=== PATIENT | male | born 1935 | race African-American/Black ===

== ENCOUNTER 2016-09-13 12:32 | Observation (INO) | payer MEDICARE, OTHER ==
[~2016-09-13] VITALS: Ht 182.9 cm; Wt 115.4 kg
[~2016-09-13 12:32] MED LIST: GLIP-112 PO; IRBE1TAB7 PO; PIOG30TA41 PO; TAMS0.4C97 PO; VERA240C2 PO; VIT1TABL71 PO
[2016-09-13] MEDS ORDERED: fentaNYL PF VIAL 100 MCG/2 ML VIAL IV PRN (13:30)
--- NOTE | 2016-09-13 13:40 | PHYS DOC ---
Past Medical History Past Medical History: Diabetes-Type II, Hypertension Past Surgical History: No Surgical History Alcohol Use: None Drug Use: None Adult General Chief Complaint Chief Complaint: LOWER EXTREMITY SWELLING HPI HPI Patient is a 81 year old -[place] male who presents with left lower extremities wounds and swelling. He states that these wounds occurred about one to 2 weeks ago is after he got discharged from here and was caused by Elbert. He states wound care nurse came out starting Saturday and has been treating it but he's not had any antibiotics. He states that its getting swollen. He denies any fevers chills nausea vomiting or wound discharge. He states wound care nurse wanted us to evaluated today. He is allergic to tetanus shots and is refusing a tetanus shot. He is of a history of diabetes. He presents to the ER with his nephew Review of Systems Review of Systems Constitutional: Denies fever or chills [] Eyes: Denies change in visual acuity, redness, or eye pain [] HENT: Denies nasal congestion or sore throat [] Respiratory: Denies cough or shortness of breath [] Cardiovascular: No additional information not addressed in HPI [] GI: Denies abdominal pain, nausea, vomiting, bloody stools or diarrhea [] : Denies dysuria or hematuria [] Musculoskeletal: Denies back pain or joint pain [] Integument: Denies rash or positive for skin lesion left lower calf Neurologic: Denies headache, focal weakness or sensory changes [] Endocrine: Denies polyuria or polydipsia [] Current Medications Current Medications Current Medications Medications (Trade) Dose Ordered Sig/Amanda Start Time Stop Time Status Last Admin Dose Admin Fentanyl Citrate (Fentanyl 2ml Vial) 25 mcg PRN Q15MIN PRN 09/13/16 13:30 09/14/16 13:29 UNV Allergies Allergies Allergies Coded Allergies Type Severity Reaction Last Updated Verified No Known Drug Allergies 08/14/16 No Physical Exam Physical Exam Constitutional: Well developed, well nourished, no acute distress, non-toxic appearance. [] HENT: Normocephalic, atraumatic, bilateral external ears normal, oropharynx moist, no oral exudates, nose normal. [] Eyes: PERRLA, EOMI, conjunctiva normal, no discharge. [] Neck: Normal range of motion, no tenderness, supple, no stridor. [] Cardiovascular:Heart rate regular rhythm, no murmur [] Lungs & Thorax: Bilateral breath sounds clear to auscultation [] Abdomen: Bowel sounds normal, soft, no tenderness, no masses, no pulsatile masses. [] Skin: Warm, dry, no erythema, no rash. [] Back: No tenderness, no CVA tenderness. [] Extremities: No tenderness, no cyanosis, no clubbing, ROM intact, 2+ edema of the left lower calf and foot with 7 x 2 cm healing wound across the anterior surface of the tib-fib area, 5 mm x 5 mm scab on the dorsum of the left foot with surrounding edema, no erythema appreciated Neurologic: Alert and oriented X 3, normal motor function, normal sensory function, no focal deficits noted. [] Psychologic: Affect normal, judgement normal, mood normal. [] Current Patient Data Vital Signs Vital Signs Date Time Temp Pulse Resp B/P (MAP) Pulse Ox O2 Delivery O2 Flow Rate FiO2 09/13/16 14:43 72 13 215/89 (131) 94 Room Air 09/13/16 13:10 97.9 97.9 Lab Values Laboratory Tests Test 09/13/16 14:15 White Blood Count 5.0 x10^3/uL (4.0-11.0) Red Blood Count 2.82 x10^6/uL (4.30-5.70) L Hemoglobin 7.3 g/dL (13.0-17.5) L Hematocrit 23.2 % (39.0-53.0) L Mean Corpuscular Volume 82 fL (79-100) Mean Corpuscular Hemoglobin 26 pg (25-35) Mean Corpuscular Hemoglobin Concent 31 g/dL (31-37) Red Cell Distribution Width 26.5 % (11.5-14.5) H Platelet Count 171 x10^3/uL (140-400) Neutrophils (%) (Auto) 73 % (31-73) Lymphocytes (%) (Auto) 8 % (24-48) L Monocytes (%) (Auto) 12 % (0-9) H Eosinophils (%) (Auto) 6 % (0-3) H Basophils (%) (Auto) 1 % (0-3) Neutrophils # (Auto) 3.7 x10^3uL (1.8-7.7) Lymphocytes # (Auto) 0.4 x10^3/uL (1.0-4.8) L Monocytes # (Auto) 0.6 x10^3/uL (0.0-1.1) Eosinophils # (Auto) 0.3 x10^3/uL (0.0-0.7) Basophils # (Auto) 0.0 x10^3/uL (0.0-0.2) Platelet Estimate Adequate (ADEQUATE) Polychromasia Slight Anisocytosis Slight Ovalocytes Occ Erythrocyte Sedimentation Rate 49 (0-15) H Sodium Level 141 mmol/L (136-145) Potassium Level 5.5 mmol/L (3.5-5.1) H Chloride Level 109 mmol/L (98-107) H Carbon Dioxide Level 22 mmol/L (21-32) Anion Gap 10 (6-14) Blood Urea Nitrogen 57 mg/dL (8-26) H Creatinine 3.0 mg/dL (0.7-1.3) H Estimated GFR (Cockcroft-Gault) 24.5 BUN/Creatinine Ratio 19 (6-20) Glucose Level 148 mg/dL (70-99) H Calcium Level 7.8 mg/dL (8.5-10.1) L Total Bilirubin 0.2 mg/dL (0.2-1.0) Aspartate Amino Transferase (AST) 15 U/L (15-37) Alanine Aminotransferase (ALT) 15 U/L (16-63) L Alkaline Phosphatase 96 U/L (46-116) C-Reactive Protein, Quantitative 4.1 mg/L (0-3.3) H Total Protein 6.7 g/dL (6.4-8.2) Albumin 2.9 g/dL (3.4-5.0) L Albumin/Globulin Ratio 0.8 (1.0-1.7) L Laboratory Tests 09/13/16 14:15 Laboratory Tests 09/13/16 14:15 EKG EKG EKG shows sinus rhythm with rate of [address] elevations or T-wave inversions, and axis deviation, QTC 419 ms, as interpreted by me. Radiology/Procedures Radiology/Procedures [facility] [address] [place], [place] [id number] IMAGING REPORT Signed PATIENT: LUKE TALLEY ACCOUNT: [id number] : 1935 LOCATION: ER AGE: 81 SEX: M EXAM [id number] STATUS: REG ER ORD. PHYSICIAN: GALLO STAFFORD MD REASON: wound PROCEDURE: FOOT LEFT 3V; TIBIA FIBULA LEFT EXAM: 1. [Left tibia/fibula 2 views. 2. Left foot 3 views. HISTORY: Open ulcers. COMPARISON: None. FINDINGS: There is a nondisplaced oblique fracture of the left distal fibular metaphysis. No tibial fracture is appreciated. 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 There is varus angulation and lateral subluxation of the tibia. Soft tissue swelling is noted throughout the leg. Atherosclerotic calcifications are noted. Osteopenia is at least moderate. There appears to be a bone island within the 2nd metatarsal diaphysis. No fractures are appreciated in the left foot. Tarsometatarsal osteoarthritis is mild for patient age. There is diffuse soft tissue swelling. No open ulcer or clear cortical erosion is identified by radiographs. IMPRESSION: 1. Nondisplaced oblique fracture of the left distal fibular metaphysis. 2. Diffuse soft tissue swelling. No clear acute osteomyelitis by radiographs. 3. 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 DICTATED and SIGNED BY: ALEXYS BAEZA MD DATE: 09/13/161444 CC: GALLO STAFFORD MD; SURY YEPEZ [facility] [address] [place], [place] [id number] IMAGING REPORT Signed PATIENT: LUKE TALLEY ACCOUNT: [id number] : 1935 LOCATION: ER AGE: 81 SEX: M EXAM STATUS: REG ER ORD. PHYSICIAN: GALLO STAFFORD MD REASON: swelling PROCEDURE: VENOUS LOWER EXTREMITY LEFT EXAM: Left lower extremity venous Doppler. HISTORY: Left lower extremity pain/swelling. COMPARISON: None. FINDINGS: Grayscale and Doppler analysis of the left lower extremity deep venous system was performed with graded compression and augmentation. The common femoral, greater saphenous, superficial femoral, popliteal and calf veins were assessed. There is no evidence of deep venous thrombosis. IMPRESSION: 1. No evidence of deep venous thrombosis. DICTATED and SIGNED BY: ALEXYS BAEZA MD DATE: 09/13/16 1416 CC: GALLO STAFFORD MD; SURY YEPEZ ~ Impressions: Cellulitis left lower extremities Hyperkalemia Accelerated hypertension Course & Med Decision Making Course & Med Decision Making Pertinent Labs and Imaging studies reviewed. (See chart for details) EKG doesn't show any concerning abnormalities. His potassium is 5.5 on labs. His creatinine is 3 which is his baseline. His blood pressures systolics been greater than 200 since he's been here. We'll give IV hydralazine and admit to the hospitalist with IV hydration and start antibiotics for his cellulitis of his left lower leg. Ultrasound left lower leg and plain films do not show any DVT or osteomyelitis. Patient's agreeable to plan, interim orders have been written. Dragon Disclaimer Dragon Disclaimer This electronic medical record was generated, in whole or in part, using a voice recognition dictation system. Departure Departure Impression: Primary Impression: Hyperkalemia Disposition: ADMITTED INPATIENT Admitting Physician: Marlee Trimble Condition: STABLE Referrals: SURY YEPEZ (PCP) GALLO STAFFORD MD Sep 13, 2016 13:40
--- NOTE | 2016-09-13 14:21 | RAD ---
EXAM: Left lower extremity venous Doppler. HISTORY: Left lower extremity pain/swelling. COMPARISON: None. FINDINGS: Grayscale and Doppler analysis of the left lower extremity deep venous system was performed with graded compression and augmentation. The common femoral, greater saphenous, superficial femoral, popliteal and calf veins were assessed. There is no evidence of deep venous thrombosis. IMPRESSION: 1. No evidence of deep venous thrombosis.
[2016-09-13 14:24] LABS: BASO % 1 % (0-3); EOS % 6 % (0-3); HEMATOCRIT 23.2 % (39.0-53.0); HEMOGLOBIN 7.3 g/dL (13.0-17.5); LYMPH # 0.4 x10^3/uL (1.0-4.8); LYMPH % 8 % (24-48); MEAN CORPUSCULAR HEMOGLOBIN 26 pg (25-35); MEAN CORPUSCULAR HGB CONC 31 g/dL (31-37); MEAN CORPUSCULAR VOLUME 82 fL (79-100); MONO % 12 % (0-9); NEUT % 73 % (31-73); PLATELET COUNT 171 x10^3/uL (140-400); RED BLOOD COUNT 2.82 x10^6/uL (4.30-5.70); RED CELL DISTRIBUTION WIDTH 26.5 % (11.5-14.5)
--- NOTE | 2016-09-13 14:51 | RAD ---
EXAM: 1. [Left tibia/fibula 2 views. 2. Left foot 3 views. HISTORY: Open ulcers. COMPARISON: None. FINDINGS: There is a nondisplaced oblique fracture of the left distal fibular metaphysis. No tibial fracture is appreciated. 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 There is varus angulation and lateral subluxation of the tibia. Soft tissue swelling is noted throughout the leg. Atherosclerotic calcifications are noted. Osteopenia is at least moderate. There appears to be a bone island within the 2nd metatarsal diaphysis. No fractures are appreciated in the left foot. Tarsometatarsal osteoarthritis is mild for patient age. There is diffuse soft tissue swelling. No open ulcer or clear cortical erosion is identified by radiographs. IMPRESSION: 1. Nondisplaced oblique fracture of the left distal fibular metaphysis. 2. Diffuse soft tissue swelling. No clear acute osteomyelitis by radiographs. 3. 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
[2016-09-13 14:57] LABS: ANISOCYTOSIS SLIGHT; OVALOCYTES OCC; PLT ESTIMATE ADEQUATE (ADEQUATE); POLYCHROMASIA SLIGHT
[2016-09-13 15:06] LABS: CALCIUM 7.8 mg/dL (8.5-10.1); GFR 24.5; POTASSIUM 5.5 mmol/L (3.5-5.1)
[2016-09-13 15:13] LABS: ALBUMIN 2.9 g/dL (3.4-5.0); ALBUMIN/GLOBULIN RATIO 0.8 (1.0-1.7); C-REACTIVE PROTEIN 4.1 mg/L (0-3.3); TOTAL BILIRUBIN 0.2 mg/dL (0.2-1.0); TOTAL PROTEIN 6.7 g/dL (6.4-8.2)
--- NOTE | 2016-09-13 16:24 | EKG ---
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
[2016-09-13] MEDS ORDERED: hydrALAZINE 20 MG/ML VIAL. IVP ONE (16:45)
[2016-09-13] MEDS ORDERED: VANCOMYCIN 2 GM in IV NORMAL SALINE 500ML BAG 500 ML IV ONE (16:45)
[2016-09-13] MEDS ORDERED: ONDANSETRON PF 4 MG/2 ML VIAL. IV PRN (16:45)
[2016-09-13] MEDS ORDERED: IV NORMAL SALINE 1000ML BAG 1,000 ML IV ONE ×2 (16:45→17:00)
--- NOTE | 2016-09-13 16:48 | PDOC1 ---
History and Physical Date of Admission Date of Admission DATE: 09/13/16 TIME: 16:47 History of Present Illness History of Present Illness Mr. Zhao, is a 81 year old admit with worsening of left lower extremities wounds and swelling. He has been seen here recently for same, was DC with wound care, and leg wounds had worsened. he previously had more LE edema, but pain is abou the same. Pain 3/10 has been getting home RN and wound care for the past week, foot and delarosa are more swollen, with some exposed areas of erythema. Some appears chronic, but patient is describing a recent worsening of pain and swelling and redness no discharge or bleeding Past Medical History Cardiovascular: HTN Musculoskeletal: low back pain Renal/: Chronic renal insuff Endocrine: Diabetes Family History Family History: Diabetes Social History Smoke: No ALCOHOL: none Drugs: None Current Problem List Problem List Problems Medical Problems: (1) Hyperkalemia Status: Acute Problems: Current Medications Current Medications Current Medications Fentanyl Citrate (Fentanyl 2ml Vial) 25 mcg PRN Q15MIN PRN IV PAIN GREATER THAN 3/10; Start 09/13/16 at 13:30; Stop 09/14/16 at 13:29; Status UNV Ondansetron HCl (Zofran) 4 mg PRN Q8HRS PRN IV NAUSEA/VOMITING; Start 09/13/16 at 16:45; Stop 09/14/16 at 16:44 Vancomycin HCl (Vanco Per Pharmacy) 1 each PRN DAILY PRN MC SEE COMMENTS; Start 09/13/16 at 16:45; Status UNV Sodium Chloride 1,000 ml @ 1,000 mls/hr 1X ONCE IV ; Start 09/13/16 at 16:45; Stop 09/13/16 at 17:44 Hydralazine HCl (Apresoline) 10 mg 1X ONCE IVP ; Start 09/13/16 at 16:45; Stop 09/13/16 at 16:46 Vancomycin HCl 2 gm/Sodium Chloride 500 ml @ 250 mls/hr 1X ONCE IV ; Start at 16:45; Stop 09/13/16 at 18:44 Active Scripts Active Reported Verapamil Er (Verapamil Hcl) 240 Mg Cap24h.pel 1 Cap PO DAILY Kallie-Magui Rx Tablet (Vit B Cmplx 3/Fa/Vit C/Biotin) 1 Each Tablet 1 Each PO DAILY Irbesartan-Hctz 300-12.5 Mg Tb (Irbesartan/Hydrochlorothiazide) 1 Each Tablet 1 Each PO DAILY Glipizide Er (Glipizide) 10 Mg Tab.er.24 1 Tab PO DAILYWSUP Glipizide Er (Glipizide) 10 Mg Tab.er.24 2 Tab PO DAILYWBKFT Flomax (Tamsulosin Hcl) 0.4 Mg Cap.er.24h 2 Cap PO DAILY Actos (Pioglitazone Hcl) 30 Mg Tablet 1 Tab PO DAILY Allergies Allergies: Coded Allergies: No Known Drug Allergies (Unverified , 08/14/16) ROS Review of System 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 , 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 [employer]: No: Chills, Night Sweats, Fatigue, Malaise, Appetite, Other PSYCHOLOGICAL ROS: No: Anxiety, Behavioral Disorder, Concentration difficultie , Decreased libido, Depression, Disorientation, Hallucinations, Hostility, Irritablity, Memory difficulties, Mood Swings, Obsessive thoughts, Physical abuse, Sexual abuse, Sleep disturbances, Suicidal ideation, Other Eyes: No Blurry vision, No Decreased vision, No Double vision, No Dry eyes, No Excessive tearing, No Eye Pain, No Itchy Eyes, No Loss of vision, No Photophobia , No Scotomata, No Uses contacts, No Uses glasses, No Other HEENT: No: Heacaches, Visual Changes, Hearing change, Nasal congestion, Nasal discharge, Oral lesions, Sinus pain, Sore Throat, Epistaxis, Sneezing, Snoring, Tinnitus, Vertigo, Vocal changes, Other Respiratory: No: Cough, Hemoptysis, Orthopnea, Pleuritic Pain, Shortness of breath, SOB with excertion, Sputum Changes, Stridor, Tachypnea, Wheezing, Other Cardiovascular: No Chest Pain, No Palpitations, No Orthopnea, No Paroxysmal Noc. Dyspnea, No Edema, No Lt Headedness, No Other Gastrointestinal: No Nausea, No Vomiting, No Abdominal Pain, No Diarrhea, No Constipation, No Melena, No Hematochezia, No Other Genitourinary: No Dysuria, No Frequency, No Incontinence, No Hematuria, No Retention, No Discharge, No Urgency, No Pain, No Flank Pain, No Other, No , No , No , No , No , No , No Musculoskeletal: Yes Joint Stiffness Neurological: No Behavorial Changes, No Bowel/Bladder ControlChng, No Confusion , No Dizziness, No Gait Disturbance, No Headaches, No Impaired Coord/balance, No Memory Loss, No Numbness/Tingling, No Seizures, No Speech Problems, No Tremors, No Visual Changes, No Weakness, No Other Skin: Yes Dry Skin, Yes Rash, Yes Skin Lesion Changes Physical Exam General: Alert, Oriented X3, Cooperative HEENT: Atraumatic, PERRLA Lungs: Clear to auscultation Heart: S1S2, RRR, no murmurs Extremities: No clubbing, No cyanosis, Other (1+ edema legt) Skin: Other (LE erythema and excoriation) Neuro: Normal speech, Sensation intact Psych/Mental Status: Mood NL Vitals Vitals Vital Signs Date Time Temp Pulse Resp B/P (MAP) Pulse Ox O2 Delivery O2 Flow Rate FiO2 09/13/16 14:43 72 13 215/89 (131) 94 Room Air 09/13/16 13:10 97.9 97.9 Labs Labs Laboratory Tests Test 09/13/16 14:15 White Blood Count 5.0 x10^3/uL (4.0-11.0) Red Blood Count 2.82 x10^6/uL (4.30-5.70) Hemoglobin 7.3 g/dL (13.0-17.5) Hematocrit 23.2 % (39.0-53.0) Mean Corpuscular Volume 82 fL (79-100) Mean Corpuscular Hemoglobin 26 pg (25-35) Mean Corpuscular Hemoglobin Concent 31 g/dL (31-37) Red Cell Distribution Width 26.5 % (11.5-14.5) Platelet Count 171 x10^3/uL (140-400) Neutrophils (%) (Auto) 73 % (31-73) Lymphocytes (%) (Auto) 8 % (24-48) Monocytes (%) (Auto) 12 % (0-9) Eosinophils (%) (Auto) 6 % (0-3) Basophils (%) (Auto) 1 % (0-3) Neutrophils # (Auto) 3.7 x10^3uL (1.8-7.7) Lymphocytes # (Auto) 0.4 x10^3/uL (1.0-4.8) Monocytes # (Auto) 0.6 x10^3/uL (0.0-1.1) Eosinophils # (Auto) 0.3 x10^3/uL (0.0-0.7) Basophils # (Auto) 0.0 x10^3/uL (0.0-0.2) Platelet Estimate Adequate (ADEQUATE) Polychromasia Slight Anisocytosis Slight Ovalocytes Occ Erythrocyte Sedimentation Rate 49 (0-15) Sodium Level 141 mmol/L (136-145) Potassium Level 5.5 mmol/L (3.5-5.1) Chloride Level 109 mmol/L (98-107) Carbon Dioxide Level 22 mmol/L (21-32) Anion Gap 10 (6-14) Blood Urea Nitrogen 57 mg/dL (8-26) Creatinine 3.0 mg/dL (0.7-1.3) Estimated GFR (Cockcroft-Gault) 24.5 BUN/Creatinine Ratio 19 (6-20) Glucose Level 148 mg/dL (70-99) Calcium Level 7.8 mg/dL (8.5-10.1) Total Bilirubin 0.2 mg/dL (0.2-1.0) Aspartate Amino Transf (AST/SGOT) 15 U/L (15-37) Alanine Aminotransferase (ALT/SGPT) 15 U/L (16-63) Alkaline Phosphatase 96 U/L (46-116) C-Reactive Protein, Quantitative 4.1 mg/L (0-3.3) Total Protein 6.7 g/dL (6.4-8.2) Albumin 2.9 g/dL (3.4-5.0) Albumin/Globulin Ratio 0.8 (1.0-1.7) Laboratory Tests Test 09/13/16 14:15 White Blood Count 5.0 x10^3/uL (4.0-11.0) Red Blood Count 2.82 x10^6/uL (4.30-5.70) Hemoglobin 7.3 g/dL (13.0-17.5) Hematocrit 23.2 % (39.0-53.0) Mean Corpuscular Volume 82 fL (79-100) Mean Corpuscular Hemoglobin 26 pg (25-35) Mean Corpuscular Hemoglobin Concent 31 g/dL (31-37) Red Cell Distribution Width 26.5 % (11.5-14.5) Platelet Count 171 x10^3/uL (140-400) Neutrophils (%) (Auto) 73 % (31-73) Lymphocytes (%) (Auto) 8 % (24-48) Monocytes (%) (Auto) 12 % (0-9) Eosinophils (%) (Auto) 6 % (0-3) Basophils (%) (Auto) 1 % (0-3) Neutrophils # (Auto) 3.7 x10^3uL (1.8-7.7) Lymphocytes # (Auto) 0.4 x10^3/uL (1.0-4.8) Monocytes # (Auto) 0.6 x10^3/uL (0.0-1.1) Eosinophils # (Auto) 0.3 x10^3/uL (0.0-0.7) Basophils # (Auto) 0.0 x10^3/uL (0.0-0.2) Platelet Estimate Adequate (ADEQUATE) Polychromasia Slight Anisocytosis Slight Ovalocytes Occ Erythrocyte Sedimentation Rate 49 (0-15) Sodium Level 141 mmol/L (136-145) Potassium Level 5.5 mmol/L (3.5-5.1) Chloride Level 109 mmol/L (98-107) Carbon Dioxide Level 22 mmol/L (21-32) Anion Gap 10 (6-14) Blood Urea Nitrogen 57 mg/dL (8-26) Creatinine 3.0 mg/dL (0.7-1.3) Estimated GFR (Cockcroft-Gault) 24.5 BUN/Creatinine Ratio 19 (6-20) Glucose Level 148 mg/dL (70-99) Calcium Level 7.8 mg/dL (8.5-10.1) Total Bilirubin 0.2 mg/dL (0.2-1.0) Aspartate Amino Transf (AST/SGOT) 15 U/L (15-37) Alanine Aminotransferase (ALT/SGPT) 15 U/L (16-63) Alkaline Phosphatase 96 U/L (46-116) C-Reactive Protein, Quantitative 4.1 mg/L (0-3.3) Total Protein 6.7 g/dL (6.4-8.2) Albumin 2.9 g/dL (3.4-5.0) Albumin/Globulin Ratio 0.8 (1.0-1.7) VTE Prophylaxis Ordered VTE Prophylaxis Devices: Yes VTE Pharmacological Prophylaxi: No Assessment/Plan Assessment/Plan LE cellulitis and swelling, consult ID, 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
[2016-09-13] MEDS: VANCOMYCIN PER PHARMACY MC PRN (17:47)
[2016-09-13 19:00] VITALS: BP 142/68
[2016-09-13 20:35] VITALS: BP 142/68
[2016-09-13] MEDS ORDERED: TAMSULOSIN 0.4 MG CAP.ER.24H. PO SCH (21:00)
[2016-09-13] MEDS ORDERED: DEXTROSE 50% 25 GM / 50ML DISP.SYRIN. IV PRN (21:00)
[2016-09-13 23:00] VITALS: BP 147/68
--- NOTE | 2016-09-13 23:05 | ACF ---
Admission Forms Criteria HYPONATREMIA; HYPERNATREMIA; HYPOKALEMIA; HYPERKALEMIA; HYPOCALCEMIA; HYPERCALCEMIA Clinical Indications for Inpatient Care (Place 'X' for any and all applicable criteria): Ongoing inpatient care may be indicated for ANY ONE of the following [G](1)(2)(3 )(5): [ ]I. Hyponatremia with ANY ONE of the following: [ ]a) Sodium less than 130 mEq/L (mmol/L) (new) (6)(22) [ ]b) Sodium less than 135 mEq/L (mmol/L) with ANY ONE of the following: [ ]i) Severe medical etiology requiring inpatient management (eg, heart failure, hypovolemia) [ ]ii) Altered mental status [ ]iii) Seizures [ ]II. Hypernatremia with ANY ONE of the following: [ ]a) Sodium greater than 155 mEq/L (mmol/L) [ ]b) Sodium greater than 150 mEq/L (mmol/L) with ANY ONE of the following: [ ] i) Altered mental status [ ]ii) Seizures [ ]iii) Severe medical etiology (eg, hypovolemia, diabetes insipidus) [ ]iv) Severe weakness [ ]v) Severe medical etiology (eg, hemolysis, infection, drug overdose) [ ]III. Hypokalemia with ANY ONE of the following: [ ]a) Potassium less than 2.5 mEq/L (mmol/L) despite outpatient and emergency treatment [ ]b) Potassium less than 3.0 mEq/L (mmol/L) with ANY ONE of the following: [ ]i) Weakness [ ]ii) Cardiac abnormality (eg, arrhythmia, conduction disturbance) [ ]iii) Cardiac ischemia [ ]iv) Ileus [ ]v) Ongoing medical cause requiring inpatient management. ( e.g., acute renal wasting, SIADH) [ ]vi) Other severe symptoms [X] IV. Hyperkalemia with ANY ONE of the following: [ ]a) Potassium greater than 6.5 mEq/L (mmol/L) [X]b) Potassium greater than 5 mEq/L (mmol/L) with ANY ONE of the following: [ ]i) Severe ECG findings [H] [X]ii) Acute worsening of renal failure (creatinine greater than 2.5 mg/dL (221 micromoles/L) or significant elevation for age and size) [ ] V. Hypocalcemia with ANY ONE of the following: [ ]a) Calcium less than 7 mg/dL (1.75 mmol/L) despite outpatient and emergency treatment(19) [ ]b) Calcium less than 8 mg/dL (2 mmol/L) with significant symptoms or findings; examples include: [ ]i) Cardiac abnormality (eg, arrhythmia or conduction disturbance) [ ]ii) Altered mental status [ ]iii) Seizures [ ]iv) Breathing difficulty [ ]v) Muscle spasms [ ]. Hypercalcemia with ANY ONE of the following: [ ]a) Calcium greater than 14 mg/dL (3.5 mmol/L) [ ]b) Calcium greater than 12 mg/dL (3 mmol/L) with ANY ONE of the following: [ ]i) Significant dehydration or hypovolemia as indicated by ANY ONE of the following(2): [ ]1. Clinically significant dehydration as indicated by ANY ONE of the following: [ ]A. Acute loss of weight from baseline (5% of body weight in adults, 9% in pediatric patients) [ ]B. Hemodynamic instability [ ]C. Acute renal failure [ ]D. Serum sodium greater than 150 mEq/L (mmol/L) [ ]2) Dehydration that is persistent indicated by ALL of the following: [ ]A. Oral rehydration therapy not tolerated or insufficient to adequately correct dehydration [ ]B. Appropriate intravenous treatment (eg, fluids ) does not readily correct dehydration ie, after 12 to 24 hours of treatment) [ ]ii) Significant symptoms or findings; examples include: [ ]1) Altered mental status [ ]2) Cardiac abnormality (eg, arrhythmia, conduction disturbance) [ ]3) Cardiac abnormality (eg, arrhythmia, conduction disturbance) The original [facility] content created by [facility] [employer] has been revised. The portions of the content which have been revised are identified through the use of italic text or in bold, and [facility] has neither reviewed nor approved the modified material. All other unmodified content is copyright [facility] Please see references footnoted in the original [facility] [employer] edition 2016 Admission Criteria Met?: Yes MORENO LYNN Sep 13, 2016 23:05
[2016-09-14 05:50] LABS: BASO % 1 % (0-3); EOS % 6 % (0-3); HEMATOCRIT 23.6 % (39.0-53.0); HEMOGLOBIN 7.3 g/dL (13.0-17.5); LYMPH # 0.4 x10^3/uL (1.0-4.8); LYMPH % 9 % (24-48); MEAN CORPUSCULAR HEMOGLOBIN 26 pg (25-35); MEAN CORPUSCULAR HGB CONC 31 g/dL (31-37); MEAN CORPUSCULAR VOLUME 83 fL (79-100); MONO % 12 % (0-9); NEUT % 72 % (31-73); PLATELET COUNT 166 x10^3/uL (140-400); RED BLOOD COUNT 2.83 x10^6/uL (4.30-5.70); RED CELL DISTRIBUTION WIDTH 26.8 % (11.5-14.5); WHITE BLOOD COUNT 4.6 x10^3/uL (4.0-11.0)
[2016-09-14 06:07] LABS: CALCIUM 8.2 mg/dL (8.5-10.1); CREATININE 2.6 mg/dL (0.7-1.3); GFR 28.9
[2016-09-14 06:42] LABS: % SAT IRON 16 % (15-34); IRON,SERUM 38 ug/dL (65-175)
[2016-09-14 06:45] LABS: POTASSIUM 5.3 mmol/L (3.5-5.1)
[2016-09-14 07:00] VITALS: BP 174/70
[2016-09-14] MEDS: INSULIN ASPART 300 UNITS/3 ML INSULN.PEN SQ SCH ×3 (08:00→17:00)
[2016-09-14] MEDS ORDERED: hydroCHLOROthiazide 12.5 MG CAPSULE PO SCH (09:00)
[2016-09-14] MEDS ORDERED: LOSARTAN POTASSIUM 50 MG TABLET. PO SCH (09:00)
[2016-09-14] MEDS ORDERED: VERAPAMIL SR 120 MG TABLET.ER. PO SCH (09:00)
[2016-09-14] MEDS ORDERED: PIOGLITAZONE 15 MG TABLET. PO SCH (09:00)
[2016-09-14] MEDS ORDERED: FOLIC/VIT B COMP W-C (RENAL) TABLET. PO SCH (09:00)
--- NOTE | 2016-09-14 10:14 | PDOC ---
Infectious Disease Note Vital Sign Vital Signs Vital Signs Date Time Temp Pulse Resp B/P (MAP) Pulse Ox O2 Delivery O2 Flow Rate FiO2 09/14/16 08:18 84 174/70 09/14/16 07:00 98.6 20 95 Room Air 98.6 Labs Lab Laboratory Tests Test 09/13/16 14:15 09/13/16 19:56 09/14/16 05:10 09/14/16 07:37 White Blood Count 5.0 x10^3/uL (4.0-11.0) 4.6 x10^3/uL (4.0-11.0) Red Blood Count 2.82 x10^6/uL (4.30-5.70) 2.83 x10^6/uL (4.30-5.70) Hemoglobin 7.3 g/dL (13.0-17.5) 7.3 g/dL (13.0-17.5) Hematocrit 23.2 % (39.0-53.0) 23.6 % (39.0-53.0) Mean Corpuscular Volume 82 fL (79-100) 83 fL (79-100) Mean Corpuscular Hemoglobin 26 pg (25-35) 26 pg (25-35) Mean Corpuscular Hemoglobin Concent 31 g/dL (31-37) 31 g/dL (31-37) Red Cell Distribution Width 26.5 % (11.5-14.5) 26.8 % (11.5-14.5) Platelet Count 171 x10^3/uL (140-400) 166 x10^3/uL (140-400) Neutrophils (%) (Auto) 73 % (31-73) 72 % (31-73) Lymphocytes (%) (Auto) 8 % (24-48) 9 % (24-48) Monocytes (%) (Auto) 12 % (0-9) 12 % (0-9) Eosinophils (%) (Auto) 6 % (0-3) 6 % (0-3) Basophils (%) (Auto) 1 % (0-3) 1 % (0-3) Neutrophils # (Auto) 3.7 x10^3uL (1.8-7.7) 3.3 x10^3uL (1.8-7.7) Lymphocytes # (Auto) 0.4 x10^3/uL (1.0-4.8) 0.4 x10^3/uL (1.0-4.8) Monocytes # (Auto) 0.6 x10^3/uL (0.0-1.1) 0.6 x10^3/uL (0.0-1.1) Eosinophils # (Auto) 0.3 x10^3/uL (0.0-0.7) 0.3 x10^3/uL (0.0-0.7) Basophils # (Auto) 0.0 x10^3/uL (0.0-0.2) 0.0 x10^3/uL (0.0-0.2) Platelet Estimate Adequate (ADEQUATE) Polychromasia Slight Anisocytosis Slight Ovalocytes Occ Erythrocyte Sedimentation Rate 49 (0-15) Sodium Level 141 mmol/L (136-145) 141 mmol/L (136-145) Potassium Level 5.5 mmol/L (3.5-5.1) 5.3 mmol/L (3.5-5.1) Chloride Level 109 mmol/L (98-107) 110 mmol/L (98-107) Carbon Dioxide Level 22 mmol/L (21-32) 21 mmol/L (21-32) Anion Gap 10 (6-14) 10 (6-14) Blood Urea Nitrogen 57 mg/dL (8-26) 51 mg/dL (8-26) Creatinine 3.0 mg/dL (0.7-1.3) 2.6 mg/dL (0.7-1.3) Estimated GFR (Cockcroft-Gault) 24.5 28.9 BUN/Creatinine Ratio 19 (6-20) Glucose Level 148 mg/dL (70-99) 123 mg/dL (70-99) Calcium Level 7.8 mg/dL (8.5-10.1) 8.2 mg/dL (8.5-10.1) Total Bilirubin 0.2 mg/dL (0.2-1.0) Aspartate Amino Transf (AST/SGOT) 15 U/L (15-37) Alanine Aminotransferase (ALT/SGPT) 15 U/L (16-63) Alkaline Phosphatase 96 U/L (46-116) C-Reactive Protein, Quantitative 4.1 mg/L (0-3.3) Total Protein 6.7 g/dL (6.4-8.2) Albumin 2.9 g/dL (3.4-5.0) Albumin/Globulin Ratio 0.8 (1.0-1.7) Glucose (Fingerstick) 199 mg/dL (70-99) 90 mg/dL (70-99) Iron Level 38 ug/dL (65-175) Total Iron Binding Capacity 241 ug/dL (250-450) Iron Saturation 16 % (15-34) Objective Assessment Lower ext wounds , appears chronic Venous insuff Plan Plan of Care d/c vanc d/c to rehab or home ok leg elevation po augmentin x 5 days ROXANA HODGSON MD Sep 14, 2016 10:14
[2016-09-14] MEDS ORDERED: CEPH-263 PO (10:18)
--- NOTE | 2016-09-14 10:32 | PDOC3 ---
Discharge Summary* Date of Admission: Sep 13, 2016 Date of Discharge: Sep 14, 2016 Admitting Diagnosis Hyperkalemia Problems: Final Diagnosis Chronic venous stasis changes Hyperkalemia CONSULTS ID Brief Hospital Course Mr. Zhao is a 81 old man with DM, HTN, PVD and recent admit for LE cellulitis. he was referred to the ER by HH RN who was concerned about this lower extremities. In the ER he was found with hyperkalemia and promptly admitted. ID consult was obtained; legs did not appear to have active infection, but rather healing ulcers w/o skin break down superimposed on chronic venous stasis dermatitis. Potassium was slightly improved the following day; this is most likely related to CKD4 and is being monitored. Patient should wrap his feet and legs up to knee with CAROLYNN bandages Physical exam: VSS, afeb Gen: A&O, NAD CV: RRR Pulm: clear Abd: +BS Extr: bilat LE chronic venous stasis changes, min edema. healing superficial ulcer. Disposition/Orders: D/C to Home w/ HH CONDITION AT DISCHARGE: Improved, Stable Diet: Renal, Cardiac, Consistent Carbohydrate Scheduled Glipizide (Glipizide Er), 2 TAB PO DAILYWBKFT, (Reported) Glipizide (Glipizide Er), 1 TAB PO DAILYWSUP, (Reported) Irbesartan/Hydrochlorothiazide (Irbesartan-Hctz 300-12.5 Mg Tb), 1 EACH PO DAILY , (Reported) Pioglitazone Hcl (Actos), 1 TAB PO DAILY, (Reported) Tamsulosin Hcl (Flomax), 2 CAP PO DAILY, (Reported) Verapamil Hcl (Verapamil Er), 1 CAP PO DAILY, (Reported) Vit B Cmplx 3/Fa/Vit C/Biotin (Kallie-Magui Rx Tablet), 1 EACH PO DAILY, (Reported) FOLLOW UP APPOINTMENT: PCP next week Time Spent Total time spent with patient [] minutes for coordination of care, counseling, and education. ZACK GROVE MD Sep 14, 2016 10:32
[2016-09-14 11:00] VITALS: BP 136/43
[2016-09-14] MEDS ORDERED: SODIUM POLYSTYRENE SULFONATE 15 GM/60 ML ORAL.SUSP. PO ONE (12:00)
--- NOTE | 2016-09-14 12:02 | PDOC2 ---
CONSULT Date of Consult Date of Consult DATE: 09/14/16 TIME: 11:37 Reason for Consult Reason for Consult: ^K Referring Physician Referring Physician: Dr Trimble Identification/Chief Complaint Chief Complaint none from pt. ? Cellulitis of Lower ext Problems: History of Present Illness Reason for Visit: as dictated. # [id number] Past Medical History Cardiovascular: HTN Musculoskeletal: low back pain Renal/: Chronic renal insuff Endocrine: Diabetes Family History Family History: Diabetes Social History No ALCOHOL: none Drugs: None Lives: with Family Current Problem List Problem List Problems Medical Problems: (1) Hyperkalemia Status: Acute Current Medications Current Medications Current Medications Fentanyl Citrate (Fentanyl 2ml Vial) 25 mcg PRN Q15MIN PRN IV PAIN GREATER THAN 3/10; Start 09/13/16 at 13:30; Stop 09/14/16 at 13:29; Status UNV Ondansetron HCl (Zofran) 4 mg PRN Q8HRS PRN IV NAUSEA/VOMITING; Start 09/13/16 at 16:45; Stop 09/14/16 at 16:44 Vancomycin HCl (Vanco Per Pharmacy) 1 each PRN DAILY PRN MC SEE COMMENTS Last administered on 09/13/16 17:47; Start 09/13/16 at 16:45 Sodium Chloride 1,000 ml @ 1,000 mls/hr 1X ONCE IV Last administered on 17:27; Start 09/13/16 at 16:45; Stop 09/13/16 at 17:44; Status DC Hydralazine HCl (Apresoline) 10 mg 1X ONCE IVP Last administered on 09/13/16 16:45; Start 09/13/16 at 16:45; Stop 09/13/16 at 16:46; Status DC Vancomycin HCl 2 gm/Sodium Chloride 500 ml @ 250 mls/hr 1X ONCE IV Last administered on 09/13/16 17:27; Start 09/13/16 at 16:45; Stop 09/13/16 at 18:44 ; Status DC Sodium Chloride 1,000 ml @ 100 mls/hr 1X ONCE IV Last administered on 22:06; Start 09/13/16 at 17:00; Stop 09/14/16 at 02:59; Status DC Vancomycin HCl 1 each 1X ONCE MC ; Start 09/15/16 at 16:30; Stop 09/15/16 at 16 :31 Vancomycin HCl 1.75 gm/Sodium Chloride 500 ml @ 250 mls/hr Q24H IV ; Start at 17:00 Tamsulosin HCl (Flomax) 0.8 mg QHS PO Last administered on 09/13/16 22:05; Start 09/13/16 at 21:00 Losartan Potassium (Cozaar) 100 mg DAILY PO Last administered on 09/14/16 08: 17; Start 09/14/16 at 09:00 Pioglitazone HCl (Actos) 30 mg DAILY PO Last administered on 09/14/16 08:19; Start 09/14/16 at 09:00 Verapamil HCl (Calan Sr) 240 mg DAILY PO Last administered on 09/14/16 08:18; Start 09/14/16 at 09:00 Vitamin B Complex/ Vitamin C (Kallie-Magui) 1 tab DAILY PO Last administered on 08:16; Start 09/14/16 at 09:00 Insulin Aspart (NovoLOG) 0-7 UNITS TIDWMEALS SQ ; Start 09/14/16 at 08:00 Dextrose (Dextrose 50%-Water Syringe) 12.5 gm PRN Q15MIN PRN IV SEE COMMENTS; Start 09/13/16 at 21:00 Hydrochlorothiazide (Microzide) 12.5 mg DAILY PO Last administered on 08:18; Start 09/14/16 at 09:00 Active Scripts Active Reported Verapamil Er (Verapamil Hcl) 240 Mg Cap24h.pel 1 Cap PO DAILY Kallie-Magui Rx Tablet (Vit B Cmplx 3/Fa/Vit C/Biotin) 1 Each Tablet 1 Each PO DAILY Irbesartan-Hctz 300-12.5 Mg Tb (Irbesartan/Hydrochlorothiazide) 1 Each Tablet 1 Each PO DAILY Glipizide Er (Glipizide) 10 Mg Tab.er.24 1 Tab PO DAILYWSUP Glipizide Er (Glipizide) 10 Mg Tab.er.24 2 Tab PO DAILYWBKFT Flomax (Tamsulosin Hcl) 0.4 Mg Cap.er.24h 2 Cap PO DAILY Actos (Pioglitazone Hcl) 30 Mg Tablet 1 Tab PO DAILY Allergies Allergies: Coded Allergies: No Known Drug Allergies (Unverified , 08/14/16) ROS Review of System GEN: no Fevers no Chills EYES: no Visual Complaints ENT: no EN Drainage no Hearing deficiets CVS: no Orthopnea no CP RESP: no SOB no CABELLO GI: no Nausea no Vomiting : no Dysuria no Urgency HEME: no easy bruising no Palp Ly Nodes NEURO no Focal Weakness no Sz PSYCH: no Suicidal Ideation no Depression SKIN: no Rashes ? Foot wound ENDO: no Polyuria or Polydipsia no Hot/Cold Intolerance MU SK: no Arthraigia no Myalgia Physical Exam Physical Exam General Appearance: Awake Alert Oriented x 3 In no Distress Eyes: VIsion Unchanged Conjunctiva Normal EN: No EN Drainage Mucous Memb. moist Neck: no JVD no JVP Supple no Thyromegaly CVS: S1 S2 soft Murmur No Gallop No Rub Ch Brawny Edema Resp: no Rales no Rhonchi no Acc. Muscle use GI: BAS +ve NO Bruit Non Tender Non Distended : no CVA tenderness; no Suprapubic Tenderness SKIN: no Rashes Breast Exam deferred Mu.Sk: Adequate ROM no Muscle Atrophy Heme: Unable to palpate Obvious LAD no Splenomegaly NEURO: Good Strength and Tone Cranial Nerves II - XII grossly intact Psych: no Depressed no Active hallucination Vital Signs Vital Signs Date Time Temp Pulse Resp B/P (MAP) Pulse Ox O2 Delivery O2 Flow Rate FiO2 09/14/16 11:00 98.1 77 20 136/43 (74) 97 Room Air 98.1 Assessment & Plan CKD IV - HTnsvie /NS - Creat Stable at baseline. Current FLuid and E-lyte status does not necessitate emergent need for Dialysis. Will re-evaluate for Dialysis in am. F/up as OP as scheudled with Me. ^K - Decrease ARb and Use Zaroxylyn in stead of HCTZ (which may not be effective since GFR < 30) Anemia:(fe def) Knonw Fe Def in the past. IV fe to be setup as OP. may need OP Epogen started too. HTN: Current BP meds reviewed. See orders for changes. Ch Brawny Lower ext edema - suspect due to Venous stasis - D/w Dr Lion Discussed Plan of Care and prognosis etc. at length with family. Labs Labs Laboratory Tests Test 09/13/16 14:15 09/13/16 19:56 09/14/16 05:10 09/14/16 07:37 White Blood Count 5.0 x10^3/uL (4.0-11.0) 4.6 x10^3/uL (4.0-11.0) Red Blood Count 2.82 x10^6/uL (4.30-5.70) 2.83 x10^6/uL (4.30-5.70) Hemoglobin 7.3 g/dL (13.0-17.5) 7.3 g/dL (13.0-17.5) Hematocrit 23.2 % (39.0-53.0) 23.6 % (39.0-53.0) Mean Corpuscular Volume 82 fL (79-100) 83 fL (79-100) Mean Corpuscular Hemoglobin 26 pg (25-35) 26 pg (25-35) Mean Corpuscular Hemoglobin Concent 31 g/dL (31-37) 31 g/dL (31-37) Red Cell Distribution Width 26.5 % (11.5-14.5) 26.8 % (11.5-14.5) Platelet Count 171 x10^3/uL (140-400) 166 x10^3/uL (140-400) Neutrophils (%) (Auto) 73 % (31-73) 72 % (31-73) Lymphocytes (%) (Auto) 8 % (24-48) 9 % (24-48) Monocytes (%) (Auto) 12 % (0-9) 12 % (0-9) Eosinophils (%) (Auto) 6 % (0-3) 6 % (0-3) Basophils (%) (Auto) 1 % (0-3) 1 % (0-3) Neutrophils # (Auto) 3.7 x10^3uL (1.8-7.7) 3.3 x10^3uL (1.8-7.7) Lymphocytes # (Auto) 0.4 x10^3/uL (1.0-4.8) 0.4 x10^3/uL (1.0-4.8) Monocytes # (Auto) 0.6 x10^3/uL (0.0-1.1) 0.6 x10^3/uL (0.0-1.1) Eosinophils # (Auto) 0.3 x10^3/uL (0.0-0.7) 0.3 x10^3/uL (0.0-0.7) Basophils # (Auto) 0.0 x10^3/uL (0.0-0.2) 0.0 x10^3/uL (0.0-0.2) Platelet Estimate Adequate (ADEQUATE) Polychromasia Slight Anisocytosis Slight Ovalocytes Occ Erythrocyte Sedimentation Rate 49 (0-15) Sodium Level 141 mmol/L (136-145) 141 mmol/L (136-145) Potassium Level 5.5 mmol/L (3.5-5.1) 5.3 mmol/L (3.5-5.1) Chloride Level 109 mmol/L (98-107) 110 mmol/L (98-107) Carbon Dioxide Level 22 mmol/L (21-32) 21 mmol/L (21-32) Anion Gap 10 (6-14) 10 (6-14) Blood Urea Nitrogen 57 mg/dL (8-26) 51 mg/dL (8-26) Creatinine 3.0 mg/dL (0.7-1.3) 2.6 mg/dL (0.7-1.3) Estimated GFR (Cockcroft-Gault) 24.5 28.9 BUN/Creatinine Ratio 19 (6-20) Glucose Level 148 mg/dL (70-99) 123 mg/dL (70-99) Calcium Level 7.8 mg/dL (8.5-10.1) 8.2 mg/dL (8.5-10.1) Total Bilirubin 0.2 mg/dL (0.2-1.0) Aspartate Amino Transf (AST/SGOT) 15 U/L (15-37) Alanine Aminotransferase (ALT/SGPT) 15 U/L (16-63) Alkaline Phosphatase 96 U/L (46-116) C-Reactive Protein, Quantitative 4.1 mg/L (0-3.3) Total Protein 6.7 g/dL (6.4-8.2) Albumin 2.9 g/dL (3.4-5.0) Albumin/Globulin Ratio 0.8 (1.0-1.7) Glucose (Fingerstick) 199 mg/dL (70-99) 90 mg/dL (70-99) Iron Level 38 ug/dL (65-175) Total Iron Binding Capacity 241 ug/dL (250-450) Iron Saturation 16 % (15-34) Laboratory Tests Test 09/13/16 14:15 09/13/16 19:56 09/14/16 05:10 09/14/16 07:37 White Blood Count 5.0 x10^3/uL (4.0-11.0) 4.6 x10^3/uL (4.0-11.0) Red Blood Count 2.82 x10^6/uL (4.30-5.70) 2.83 x10^6/uL (4.30-5.70) Hemoglobin 7.3 g/dL (13.0-17.5) 7.3 g/dL (13.0-17.5) Hematocrit 23.2 % (39.0-53.0) 23.6 % (39.0-53.0) Mean Corpuscular Volume 82 fL (79-100) 83 fL (79-100) Mean Corpuscular Hemoglobin 26 pg (25-35) 26 pg (25-35) Mean Corpuscular Hemoglobin Concent 31 g/dL (31-37) 31 g/dL (31-37) Red Cell Distribution Width 26.5 % (11.5-14.5) 26.8 % (11.5-14.5) Platelet Count 171 x10^3/uL (140-400) 166 x10^3/uL (140-400) Neutrophils (%) (Auto) 73 % (31-73) 72 % (31-73) Lymphocytes (%) (Auto) 8 % (24-48) 9 % (24-48) Monocytes (%) (Auto) 12 % (0-9) 12 % (0-9) Eosinophils (%) (Auto) 6 % (0-3) 6 % (0-3) Basophils (%) (Auto) 1 % (0-3) 1 % (0-3) Neutrophils # (Auto) 3.7 x10^3uL (1.8-7.7) 3.3 x10^3uL (1.8-7.7) Lymphocytes # (Auto) 0.4 x10^3/uL (1.0-4.8) 0.4 x10^3/uL (1.0-4.8) Monocytes # (Auto) 0.6 x10^3/uL (0.0-1.1) 0.6 x10^3/uL (0.0-1.1) Eosinophils # (Auto) 0.3 x10^3/uL (0.0-0.7) 0.3 x10^3/uL (0.0-0.7) Basophils # (Auto) 0.0 x10^3/uL (0.0-0.2) 0.0 x10^3/uL (0.0-0.2) Platelet Estimate Adequate (ADEQUATE) Polychromasia Slight Anisocytosis Slight Ovalocytes Occ Erythrocyte Sedimentation Rate 49 (0-15) Sodium Level 141 mmol/L (136-145) 141 mmol/L (136-145) Potassium Level 5.5 mmol/L (3.5-5.1) 5.3 mmol/L (3.5-5.1) Chloride Level 109 mmol/L (98-107) 110 mmol/L (98-107) Carbon Dioxide Level 22 mmol/L (21-32) 21 mmol/L (21-32) Anion Gap 10 (6-14) 10 (6-14) Blood Urea Nitrogen 57 mg/dL (8-26) 51 mg/dL (8-26) Creatinine 3.0 mg/dL (0.7-1.3) 2.6 mg/dL (0.7-1.3) Estimated GFR (Cockcroft-Gault) 24.5 28.9 BUN/Creatinine Ratio 19 (6-20) Glucose Level 148 mg/dL (70-99) 123 mg/dL (70-99) Calcium Level 7.8 mg/dL (8.5-10.1) 8.2 mg/dL (8.5-10.1) Total Bilirubin 0.2 mg/dL (0.2-1.0) Aspartate Amino Transf (AST/SGOT) 15 U/L (15-37) Alanine Aminotransferase (ALT/SGPT) 15 U/L (16-63) Alkaline Phosphatase 96 U/L (46-116) C-Reactive Protein, Quantitative 4.1 mg/L (0-3.3) Total Protein 6.7 g/dL (6.4-8.2) Albumin 2.9 g/dL (3.4-5.0) Albumin/Globulin Ratio 0.8 (1.0-1.7) Glucose (Fingerstick) 199 mg/dL (70-99) 90 mg/dL (70-99) Iron Level 38 ug/dL (65-175) Total Iron Binding Capacity 241 ug/dL (250-450) Iron Saturation 16 % (15-34) Images Images Renal US from 2015: The kidneys are borderline small. The right kidney measures 8.3 x 4.9 x 4.6 the centimeters and demonstrates a hyper echogenic appearance of the renal parenchyma which can be seen in medical renal disease. There is no hydronephrosis or evidence for solid mass. The left kidney measures 9.7 x 3.6 x 5.5 centimeters and demonstrates a hyper echogenic appearance of the parenchyma which can be seen in medical renal disease. There is no hydronephrosis or evidence for mass. The urinary bladder is not well-distended. IMPRESSION Somewhat small bilateral kidneys with echogenic renal parenchyma which can be seen in medical renal disease. There is no hydronephrosis. FERNANDO HODGSON MD Sep 14, 2016 12:02
[2016-09-14] MEDS ORDERED: METO5TAB4 PO (12:06)
[2016-09-14] MEDS ORDERED: IRBE300T3 PO (12:06)
[2016-09-14] MEDS: VANCOMYCIN PER PHARMACY MC PRN (12:42)
[2016-09-14] MEDS ORDERED: DARBEPOETIN ALFA 100 MCG/0.5 ML DISP.SYRIN. SQ ONE (13:00)
[2016-09-14 15:00] VITALS: BP 158/68
[2016-09-14] MEDS ORDERED: VANCOMYCIN 1.75 GM in IV NORMAL SALINE 500ML BAG 500 ML IV SCH (17:00)
--- NOTE | 2016-09-15 00:31 | CONS ---
DATE OF CONSULTATION: 09/14/2016 REQUESTING PHYSICIAN: Dr. Trimble. REASON FOR CONSULTATION: Cellulitis of the leg. HISTORY OF PRESENT ILLNESS: This is an 81-year-old -[place] gentleman with history of hypertension, renal insufficiency, diabetes, who was in the hospital here with swelling and he returned with wounds on the leg that he says had developed about 2 weeks ago. The patient denies any fever, denies any nausea, vomiting, diarrhea, chest pain, shortness of breath, abdominal pain or leg pain. Denies any other complaints. The patient has been put on vancomycin and consult has been requested. PAST MEDICAL HISTORY: Positive for hypertension, renal insufficiency, diabetes and venous insufficiency. SOCIAL HISTORY: Negative for smoking, alcohol or illicit drug use. ALLERGIES: No known drug allergies. CURRENT MEDICATIONS: Reviewed. REVIEW OF SYSTEMS: As per HPI, all other systems reviewed and are negative. PHYSICAL EXAMINATION: GENERAL: Alert, oriented gentleman, not in any distress. VITAL SIGNS: Stable, afebrile. HEENT: NAD. NECK: Supple, no JVP, no lymphadenopathy. LUNGS: Clear. HEART: S1, S2 regular. ABDOMEN: Benign. EXTREMITIES: The patient has venous insufficiency changes present, but superficial chronic appearing wounds visible. Acuteness of any of those wounds cannot be ____ because of the skin coloration, but mostly appears old. The patient does move all the extremities. NEUROLOGIC: Intact. LABORATORY DATA: White count is normal. BUN 51, creatinine 2.6, had foot x-ray, showed nondisplaced oblique fracture of the left distal fibular metaphysis, probably old. Ultrasound was negative for DVT. IMPRESSION: 1. Lower extremity wounds, appears chronic. 2. Venous insufficiency changes. 3. Hypertension. 4. Diabetes. RECOMMENDATION: We will discontinue vancomycin. Leg elevation. Discharged to rehabilitation or home okay, p.o. Augmentin for [address] Lion done. Thank you very much, Dr. Lion and Dr. Trimble for giving me the opportunity to participate in this patient's care. ROXANA HODGSON MD DR: ARIK/moisés JOB#: [id number] / [id number]
--- NOTE | 2016-09-15 02:31 | CONS ---
DATE OF CONSULTATION: 09/14/2016 PRIMARY PHYSICIAN: Dr. Trimble/Dr. Lion. REASON FOR CONSULTATION: Hyperkalemia, CKD stage IV. HISTORY OF PRESENT ILLNESS: The patient is an 81-year-old -[place] gentleman who I follow for his CKD needs. He is known to have a baseline creatinine for about 2-1/2-3.0 corresponding to GFR less than 30 mL per minute. 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 He was sent here by his home health nurse after he was felt to have cellulitis of his left lower extremity and was sent to the ER. In the ER, he was noted to have high potassium and is admitted to the hospital for further evaluation. His potassium was 5.5 yesterday and this morning on recheck it still 5.3. In this setting, we were asked to see him for further evaluation. The patient has had similar episodes about a month ago and was admitted to the hospital with a potassium of 6.1 and was treated, then medications were ____, dietary education was provided. The patient denies high potassium foods at this time. He is also noted to be iron deficient. His cellulitis has been evaluated and is not felt to be an active issue at this time. For further details, see electronic records. FERNANDO HODGSON MD DR: CL/moisés JOB#: [id number] / [id number]
== END 2016-09-14 17:15 | disposition home health service (06) ==
LOC: ER 12:32 → 5 SOUTH 16:05
PROVIDERS: ADMIT Internal Medicine; ATTEND Internal Medicine
DX: E87.5 Hyperkalemia (principal); I87.2 Venous insufficiency (chronic) (peripheral); I13.0 Hypertensive heart and chronic kidney disease with heart failure and stage 1 through stage 4 chronic kidney disease, or unspecified chronic kidney disease; N18.4 Chronic kidney disease, stage 4 (severe); E11.22 Type 2 diabetes mellitus with diabetic chronic kidney disease; E11.51 Type 2 diabetes mellitus with diabetic peripheral angiopathy without gangrene; L03.119 Cellulitis of unspecified part of limb; D63.1 Anemia in chronic kidney disease; E61.1 Iron deficiency; E66.9 Obesity, unspecified; M17.12 Unilateral primary osteoarthritis, left knee; S82.435A Nondisplaced oblique fracture of shaft of left fibula, initial encounter for closed fracture; N27.1 Small kidney, bilateral; X58.XXXA Exposure to other specified factors, initial encounter; Y93.89 Activity, other specified; Y92.89 Other specified places as the place of occurrence of the external cause; Y99.8 Other external cause status; Z68.34 Body mass index [BMI] 34.0-34.9, adult; Z83.3 Family history of diabetes mellitus
CPT/HCPCS: 36415; 73590; 73630; 80048; 80053; 82962; 83540; 83550; 85007; 85027; 85651; 86140; 93005; 93971; 96361; 96365; 96366; 96372; 96375; 99285; G0378; J0360; J0881; J1815; J3370; J7030; J7040; G0379; A6539

== ENCOUNTER → 2016-10-04 | Outpatient (CLI) | payer MEDICARE, OTHER ==
[2016-09-18 10:24] VITALS: BP 162/73
[~2016-10-04] MED LIST changes: +CEPH-263 PO; +IRBE300T3 PO; +METO5TAB4 PO
[2016-10-04 14:04] LABS: BASO % 0 % (0-3); EOS % 3 % (0-3); HEMATOCRIT 27.8 % (39.0-53.0); HEMOGLOBIN 8.7 g/dL (13.0-17.5); LYMPH # 0.4 x10^3/uL (1.0-4.8); LYMPH % 5 % (24-48); MEAN CORPUSCULAR HEMOGLOBIN 28 pg (25-35); MEAN CORPUSCULAR HGB CONC 31 g/dL (31-37); MEAN CORPUSCULAR VOLUME 90 fL (79-100); MONO % 11 % (0-9); NEUT % 80 % (31-73); PLATELET COUNT 148 x10^3/uL (140-400); RED CELL DISTRIBUTION WIDTH 26.7 % (11.5-14.5); WHITE BLOOD COUNT 7.6 x10^3/uL (4.0-11.0)
[2016-10-04 14:16] LABS: % SAT IRON 11 % (15-34); IRON,SERUM 22 ug/dL (65-175)
[2016-10-04 14:29] LABS: ALBUMIN 3.2 g/dL (3.4-5.0); CALCIUM 7.7 mg/dL (8.5-10.1); CREATININE 3.7 mg/dL (0.7-1.3); GFR 19.2; MAGNESIUM 2.7 mg/dL (1.8-2.4); PHOSPHORUS 4.4 mg/dL (2.6-4.7); POTASSIUM 5.8 mmol/L (3.5-5.1)
[2016-10-04 15:07] LABS: % EOS 5 % (0-5); CRENATED RBC PRESENT; PLT ESTIMATE ADEQUATE (ADEQUATE)
[2016-10-04 15:08] LABS: OVALOCYTES OCC; SCHISTOCYTES FEW; TOXIC VACUOLATION SLIGHT
[2016-10-05 05:19] LABS: PTH INTACT 77 pg/mL (15-65)
== END | disposition home or self-care (01) ==
LOC: SPEC 13:34
PROVIDERS: ATTEND Nurse Practitioner Family
DX: I12.9 Hypertensive chronic kidney disease with stage 1 through stage 4 chronic kidney disease, or unspecified chronic kidney disease (principal); N18.4 Chronic kidney disease, stage 4 (severe); E11.22 Type 2 diabetes mellitus with diabetic chronic kidney disease; E87.2 Acidosis; D50.9 Iron deficiency anemia, unspecified; D63.1 Anemia in chronic kidney disease; R80.9 Proteinuria, unspecified
CPT/HCPCS: 36415; 80069; 82043; 82570; 82728; 83540; 83550; 83735; 83970; 84156; 85007; 85027

== ENCOUNTER → 2016-10-24 | Outpatient (CLI) | payer MEDICARE, OTHER ==
[2016-09-18 10:24] VITALS: BP 162/73
[2016-10-24 14:35] LABS: ALBUMIN 3.2 g/dL (3.4-5.0); CALCIUM 8.7 mg/dL (8.5-10.1); CREATININE 2.9 mg/dL (0.7-1.3); GFR 25.5; PHOSPHORUS 4.2 mg/dL (2.6-4.7)
[2016-10-24 14:43] LABS: POTASSIUM 6.4 mmol/L (3.5-5.1)
== END | disposition home or self-care (01) ==
LOC: SPEC 14:05
PROVIDERS: ATTEND Family Medicine
DX: N18.4 Chronic kidney disease, stage 4 (severe) (principal)
CPT/HCPCS: 36415; 80069

== ENCOUNTER → 2016-10-26 | Outpatient (CLI) | payer MEDICARE, OTHER ==
[2016-09-18 10:24] VITALS: BP 162/73
[2016-10-26 12:51] LABS: CALCIUM 8.2 mg/dL (8.5-10.1); CREATININE 2.8 mg/dL (0.7-1.3); GFR 26.5; PHOSPHORUS 4.4 mg/dL (2.6-4.7)
== END | disposition home or self-care (01) ==
LOC: SPEC 12:12
PROVIDERS: ATTEND Internal Medicine Nephrology
DX: N18.3 Chronic kidney disease, stage 3 (moderate) (principal)
CPT/HCPCS: 36415; 80069

== ENCOUNTER → 2016-11-08 | Outpatient (CLI) | payer MEDICARE, OTHER ==
[2016-09-18 10:24] VITALS: BP 162/73
[2016-11-08 14:33] LABS: ALBUMIN 3.1 g/dL (3.4-5.0); CALCIUM 8.6 mg/dL (8.5-10.1); CREATININE 3.1 mg/dL (0.7-1.3); GFR 23.6; PHOSPHORUS 4.8 mg/dL (2.6-4.7); POTASSIUM 5.4 mmol/L (3.5-5.1)
== END | disposition home or self-care (01) ==
LOC: SPEC 13:21
PROVIDERS: ATTEND Internal Medicine Nephrology
DX: I12.9 Hypertensive chronic kidney disease with stage 1 through stage 4 chronic kidney disease, or unspecified chronic kidney disease (principal); N18.9 Chronic kidney disease, unspecified
CPT/HCPCS: 36415; 80069

== ENCOUNTER → 2016-11-15 | Outpatient (CLI) | payer MEDICARE, OTHER ==
[2016-09-18 10:24] VITALS: BP 162/73
[2016-11-15 14:43] LABS: ALBUMIN 3.5 g/dL (3.4-5.0); CALCIUM 8.8 mg/dL (8.5-10.1); CREATININE 2.9 mg/dL (0.7-1.3); GFR 25.5; MAGNESIUM 2.7 mg/dL (1.8-2.4); POTASSIUM 5.6 mmol/L (3.5-5.1)
== END | disposition home or self-care (01) ==
LOC: SPEC 14:09
PROVIDERS: ATTEND Internal Medicine Nephrology
DX: I12.9 Hypertensive chronic kidney disease with stage 1 through stage 4 chronic kidney disease, or unspecified chronic kidney disease (principal); N18.3 Chronic kidney disease, stage 3 (moderate)
CPT/HCPCS: 36415; 80069; 83735

== ENCOUNTER → 2016-11-28 | Outpatient (CLI) | payer MEDICARE, OTHER ==
[2016-09-18 10:24] VITALS: BP 162/73
[2016-11-28 14:16] LABS: ALBUMIN 3.1 g/dL (3.4-5.0); CALCIUM 8.6 mg/dL (8.5-10.1); CREATININE 3.2 mg/dL (0.7-1.3); GFR 22.7; MAGNESIUM 2.4 mg/dL (1.8-2.4); PHOSPHORUS 4.3 mg/dL (2.6-4.7); POTASSIUM 4.7 mmol/L (3.5-5.1)
== END | disposition home or self-care (01) ==
LOC: SPEC 13:46
PROVIDERS: ATTEND Internal Medicine Nephrology
DX: I12.9 Hypertensive chronic kidney disease with stage 1 through stage 4 chronic kidney disease, or unspecified chronic kidney disease (principal); N18.3 Chronic kidney disease, stage 3 (moderate)
CPT/HCPCS: 36415; 80069; 83735

== ENCOUNTER → 2016-12-07 | Outpatient (CLI) | payer MEDICARE, OTHER ==
[2016-09-18 10:24] VITALS: BP 162/73
[2016-12-07 14:03] LABS: ALBUMIN 3.2 g/dL (3.4-5.0); CALCIUM 8.4 mg/dL (8.5-10.1); CREATININE 2.8 mg/dL (0.7-1.3); GFR 26.5; MAGNESIUM 2.4 mg/dL (1.8-2.4); PHOSPHORUS 3.7 mg/dL (2.6-4.7); POTASSIUM 5.5 mmol/L (3.5-5.1)
== END | disposition home or self-care (01) ==
LOC: SPEC 13:33
PROVIDERS: ATTEND Internal Medicine Nephrology
DX: I12.9 Hypertensive chronic kidney disease with stage 1 through stage 4 chronic kidney disease, or unspecified chronic kidney disease (principal); N18.3 Chronic kidney disease, stage 3 (moderate)
CPT/HCPCS: 36415; 80069; 83735

== ENCOUNTER → 2016-12-13 | Outpatient (CLI) | payer MEDICARE, OTHER ==
[2016-09-18 10:24] VITALS: BP 162/73
[2016-12-13 13:01] LABS: MAGNESIUM 2.5 mg/dL (1.8-2.4); POTASSIUM 4.8 mmol/L (3.5-5.1)
== END | disposition home or self-care (01) ==
LOC: SPEC 12:38
PROVIDERS: ATTEND Internal Medicine Nephrology
DX: I12.9 Hypertensive chronic kidney disease with stage 1 through stage 4 chronic kidney disease, or unspecified chronic kidney disease (principal); N18.3 Chronic kidney disease, stage 3 (moderate)
CPT/HCPCS: 36415; 83735; 84132

== ENCOUNTER → 2016-12-27 | Outpatient (CLI) | payer MEDICARE, OTHER ==
[2016-09-18 10:24] VITALS: BP 162/73
[2016-12-27 15:38] LABS: MAGNESIUM 2.3 mg/dL (1.8-2.4); POTASSIUM 4.3 mmol/L (3.5-5.1)
== END | disposition home or self-care (01) ==
LOC: SPEC 15:14
PROVIDERS: ATTEND Internal Medicine Nephrology
DX: I12.9 Hypertensive chronic kidney disease with stage 1 through stage 4 chronic kidney disease, or unspecified chronic kidney disease (principal); N18.3 Chronic kidney disease, stage 3 (moderate)
CPT/HCPCS: 36415; 83735; 84132

== ENCOUNTER → 2017-01-11 | Outpatient (CLI) | payer MEDICARE, OTHER ==
[2016-09-18 10:24] VITALS: BP 162/73
[2017-01-11 13:03] LABS: MAGNESIUM 2.5 mg/dL (1.8-2.4)
== END | disposition home or self-care (01) ==
LOC: SPEC 12:39
PROVIDERS: ATTEND Internal Medicine Nephrology
DX: E11.22 Type 2 diabetes mellitus with diabetic chronic kidney disease (principal); N18.3 Chronic kidney disease, stage 3 (moderate)
CPT/HCPCS: 36415; 83735; 84132

== ENCOUNTER → 2017-01-31 | Outpatient (CLI) | payer MEDICARE, OTHER ==
[2016-09-18 10:24] VITALS: BP 162/73
[2017-01-31 13:22] LABS: BASO % 1 % (0-3); EOS % 5 % (0-3); HEMATOCRIT 36.5 % (39.0-53.0); HEMOGLOBIN 11.7 g/dL (13.0-17.5); LYMPH # 0.4 x10^3/uL (1.0-4.8); LYMPH % 9 % (24-48); MEAN CORPUSCULAR HEMOGLOBIN 30 pg (25-35); MEAN CORPUSCULAR HGB CONC 32 g/dL (31-37); MEAN CORPUSCULAR VOLUME 94 fL (79-100); MONO % 9 % (0-9); NEUT % 76 % (31-73); PLATELET COUNT 133 x10^3/uL (140-400); RED CELL DISTRIBUTION WIDTH 16.6 % (11.5-14.5); WHITE BLOOD COUNT 5.1 x10^3/uL (4.0-11.0)
[2017-01-31 13:54] LABS: ALBUMIN 3.4 g/dL (3.4-5.0); CALCIUM 8.6 mg/dL (8.5-10.1); CREATININE 2.5 mg/dL (0.7-1.3); GFR 30.2; MAGNESIUM 2.3 mg/dL (1.8-2.4); PHOSPHORUS 3.6 mg/dL (2.6-4.7); POTASSIUM 4.6 mmol/L (3.5-5.1)
[2017-02-01 02:18] LABS: PTH INTACT 149 pg/mL (15-65)
== END | disposition home or self-care (01) ==
LOC: SPEC 13:12
PROVIDERS: ATTEND Internal Medicine Nephrology
DX: I12.9 Hypertensive chronic kidney disease with stage 1 through stage 4 chronic kidney disease, or unspecified chronic kidney disease (principal); N18.9 Chronic kidney disease, unspecified; E11.22 Type 2 diabetes mellitus with diabetic chronic kidney disease; N17.9 Acute kidney failure, unspecified
CPT/HCPCS: 36415; 80069; 83735; 83970; 85025